=== PATIENT | female | born 1965 | race Caucasian/White ===

== ENCOUNTER 2020-02-25 09:10 | Observation (INO) ==
[2020-02-25 09:47] LABS: ABS Basophils 0.1 10^3/ul (0-0.2); ABS Eosinophils 0.3 10^3/ul (0-0.6); ABS Lymphocytes 3.4 10^3/ul (1.0-4.8); ABS Monocytes 0.7 10^3/ul (0-0.8); ABS Neutrophils 3.3 10^3/ul (1.5-7.7); Eosinophil % 4.2 %; Hematocrit 41 % (35-47); Hemoglobin 13.8 g/dL (12.0-16.0); Lymphocyte % 43.9 %; Mean Corpuscular HGB Conc 34 g/dL (31-36); Mean Corpuscular Hemoglobin 29 pg (27-31); Mean Corpuscular Volume 86 fL (80-97); Mean Platelet Volume 7.1 fL (7.4-10.4); Nucleated Red Blood Cells % 0.1; Platelet Count 393 10^3/uL (150-450); Red Blood Count 4.72 10^6 /uL (3.70-4.87); Red Cell Distribution Width 13 % (10-15); White Blood Count 7.7 10^3/uL (3.5-10.8)
[2020-02-25 10:04] LABS: ALT 37 U/L (7-52); AST 30 U/L (13-39); Albumin 4.3 g/dL (3.2-5.2); Albumin/Globulin Ratio 1.4 (1-3); Alkaline Phosphatase 82 U/L (34-104); Anion Gap 9 mmol/L (2-11); BUN/Creatinine Ratio 18.2 (8-20); Blood Urea Nitrogen 14 mg/dL (6-24); CO2 Carbon Dioxide 23 mmol/L (22-32); Calcium 9.4 mg/dL (8.6-10.3); Chloride 106 mmol/L (101-111); EGFR African American 94.2 (>60); EGFR Non-African American 77.8 (>60); Globulin 3.1 g/dL (2-4); Glucose 126 mg/dL (70-100); Sodium 138 mmol/L (135-145); Total Protein 7.4 g/dL (6.4-8.9)
[2020-02-25 10:09] LABS: Troponin I 0.03 ng/mL (<0.03)
[2020-02-25 13:10] LABS: Troponin I 0.04 ng/mL (<0.03)
[2020-02-25] MEDS ORDERED: Morphine 2 MG/ML SYRINGE IV PRN (15:25)
[2020-02-25] MEDS ORDERED: Iohexol 350 (CONTRAST) 500 ML MDV IV ONE (15:26)
[2020-02-25 15:55] LABS: Cholesterol 274 mg/dL; Triglycerides 152 mg/dL
[2020-02-25 16:48] LABS: Troponin I 0.04 ng/mL (<0.03)
[2020-02-25 18:18] LABS: HDL Cholesterol 52.5 mg/dL; LDL Cholesterol 191 mg/dL
[2020-02-25] MEDS: Heparin 5000 UNITS/ML 1 mL VIAL SUBCUT SCH (20:03)
[2020-02-26] MEDS: Heparin 5000 UNITS/ML 1 mL VIAL SUBCUT SCH ×2 (05:27→14:37)
[2020-02-26] MEDS ORDERED: Aspirin EC 81 mg TAB.EC (enteric coated) PO SCH (09:00)
[2020-02-26] MEDS ORDERED: Perflutren Lipid Microsphere 3 ML VIAL ONE (11:43)
[2020-02-26 12:54] VITALS: BP 136/88
== END 2020-02-26 15:35 | disposition home or self-care (01) ==
LOC: ED 09:10 → MEDTELE 09:10
PROVIDERS: ADMIT Internal Medicine; ATTEND Internal Medicine